=== PATIENT | female | born 1935 | race Caucasian/White ===

== ENCOUNTER 2024-07-17 13:44 | Observation (INO) | payer MEDICARE, SELFPAY ==
[2024-07-17] VITALS (25 sets, daily range): BP systolic 124–153; BP diastolic 73–100; PULSE 73–100; TEMP 35.5–36.7; O2SAT 96–100; BMI 221.3; BMI 22.2
--- NOTE | 2024-07-17 13:58 | ECG_ITS ---
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 Measurements Intervals [place] Rate: 93 P: 17 SC: 170 QRS: 15 QRSD: 82 T: 54 QT: 358 QTc: 409 Interpretive Statements 1100 Sinus rhythm 9110 normal ECG Compared to ECG 01/07/2018 13:21:08 Ventricular premature complex(es) no longer present Possible ischemia no longer present Myocardial infarct finding no longer present Electronically Signed On 07-17-2024 20:33:31 EST by SCOTTY CRUZ M.D.
--- NOTE | 2024-07-17 14:01 | ED_ITS ---
HPI HPI - General Adult General Chief complaint: Recheck/Abnormal Lab/Rx Stated complaint: ABNORMAL LABS Time Seen by Provider: 07/17/24 13:45 Source: patient and family Mode of arrival: walk-in Limitations: no limitations History of Present Illness HPI narrative: Patient is an 89-year-old female who presents to the emergency department at the recommendation of her specialist at the [facility] for an abnormal lab. She sees the [facility] for management of her chronic kidney disease, she states she had outpatient labs that were drawn at the facility and she had a critically high potassium. She was instructed to come to this emergency department for recheck of the potassium. Patient is totally asymptomatic at this time. She has not had any recent illness. Related Data Home Medications ?Medication ?Instructions ?Recorded ?Confirmed No Known Home Medications 07/17/24 07/17/24 Allergies Allergy/AdvReac Type Severity Reaction Status Date / Time No Known Drug Allergies Allergy Verified 07/17/24 13:50 Opioid HPI Opioid Management Most Recent Opioid Data: No Data to Display Review of Systems ROS Constitutional Denies: fever or chills Ears, nose, mouth, and throat Denies: throat pain or nasal congestion Cardiovascular Denies: chest pain Respiratory Denies: shortness of breath Gastrointestinal Denies: nausea or vomiting Integumentary/Breast Denies: rash Neurological Denies: numbness in extremities or weakness in extremities Hematologic/Lymphatic Denies: easy bruising or easy bleeding PFSH PFSH Social History Little interest or pleasure in doing things: not at all Feeling down, depressed, or hopeless: not at all Exam Narrative Exam Narrative: Gen.: Awake, alert, in no distress Head: Normocephalic, atraumatic ENT: Moist mucous membranes Respiratory: No respiratory distress, lungs clear bilaterally Cardio: Regular rate and rhythm Gastrointestinal: Abdomen is soft, nondistended and nontender to palpation Extremities: Moves extremities equally Psych: Normal mood and affect Neuro: No focal neuro deficit Skin: Warm, dry, intact Constitutional Vital Signs, click to edit/add: Last Vital Signs Temp 97.7 F 07/17/24 13:50 Pulse 79 07/17/24 15:20 Resp 18 07/17/24 15:20 BP 124/73 07/17/24 15:11 Pulse Ox 98 07/17/24 15:20 O2 Del Method Room Air 07/17/24 13:50 Course Vital Signs Vital signs: Vital Signs Temperature 97.7 F 07/17/24 13:50 Pulse Rate 100 H 07/17/24 13:50 Respiratory Rate 16 07/17/24 13:50 Blood Pressure 153/98 H 07/17/24 13:50 Pulse Oximetry 98 07/17/24 13:50 Oxygen Delivery Method Room Air 07/17/24 13:50 Temperature 97.7 F 07/17/24 13:50 Pulse Rate 79 07/17/24 15:20 Respiratory Rate 18 07/17/24 15:20 Blood Pressure 124/73 07/17/24 15:11 Pulse Oximetry 98 07/17/24 15:20 Oxygen Delivery Method Room Air 07/17/24 13:50 Medical Decision Making MDM Narrative Medical decision making narrative: EKG is unremarkable, BMP shows potassium 6.1 with creatinine 5.77. Patient's daughter has her old labs from [facility] on electronic medical records on her phone, her typical creatinine over the last few months has been between 4-5 and she typically runs a potassium around 5-5.2. Patient is asymptomatic in the ER, she prefers outpatient management however is agreeable to observation to manage her potassium in the hospital. She was given a small fluid bolus, insulin, dextrose, sodium bicarbonate, calcium gluconate. Discussed with Dr. Aggarwal and the patient is admitted for hyperkalemia in stable condition. I did contact the patient's nephrology office to [facility], Dr. Colbert for kidney medicine. They are aware of the patient. Patient and her daughter at bedside are in agreement, the patient does not have any interest in pursuing dialysis or invasive medical care for her kidney function. They are agreeable to medical management for hyperkalemia, patient is not interested in transfer to a tertiary care facility or pursuing dialysis. SUPERVISED APC VISIT, PHYSICIAN ATTESTATION: Based on the medical record the care appears appropriate. ? Medical Records Medical records reviewed: Yes I reviewed the patient's medical records Lab Data Lab results reviewed: Yes I reviewed the patient's lab results Labs: Lab Results 07/17/24 Range/Units 14:05 Sodium 136 (136-145) mmol/L Potassium 6.1 H* (3.5-5.1) mmol/L Chloride 101 (98-107) mmol/L Carbon Dioxide 24.7 (21.0-32.0) mmol/L Anion Gap 16.4 BUN 53.0 H (7.0-18.0) mg/dL Creatinine 5.77 H* (0.55-1.02) mg/dL Est GFR ( Amer) 8 L (>=60 mL/min/1.73m^2) Est GFR (Non-Af Amer) 7 L (>=60 mL/min/1.73m^2) BUN/Creatinine Ratio 9.2 Glucose 106 (74-106) mg/dL Calcium 9.0 (8.5-10.1) mg/dL ECG Data Attestation: I personally reviewed and interpreted this ECG as follows: (Normal sinus rhythm at a rate of 93, no acute ST elevation or ectopy. EKG reviewed by attending physician) Discharge Plan Discharge Chief Complaint: Recheck/Abnormal Lab/Rx Clinical Impression: Hyperkalemia, Chronic kidney disease Patient Disposition: Admitted as Observation Time of Disposition Decision: 15:57
[2024-07-17 14:25] LABS: Anion Gap 16.4; BUN Creatinine Ratio 9.2; Carbon Dioxide 24.7 mmol/L (21.0-32.0); Chloride 101 mmol/L (98-107); Estimated GFR (African America 8 (>=60 mL/min/1.73m^2); Estimated GFR (Non-African Ame 7 (>=60 mL/min/1.73m^2); Glucose 106 mg/dL (74-106); Sodium 136 mmol/L (136-145)
[2024-07-17 14:26] LABS: Potassium 6.1 mmol/L (3.5-5.1)
[2024-07-17] MEDS: CALCIUM GLUCONATE 1,000 MG/10 ML VIAL 1000 MG IVP (14:50)
[2024-07-17] MEDS: 0.9 % SODIUM CHLORIDE 500 ML IV (14:51)
[2024-07-17] MEDS: SODIUM BICARBONATE 8.4 % 50 MEQ/50 ML SYRINGE IV (14:51)
[2024-07-17] MEDS: DEXTROSE 50 %-WATER 25 GM/50 ML SYRINGE IV (14:51)
[2024-07-17 16:00] LABS: Basophils Percent Auto 0.6 % (0.2-2.0); Eosinophils Absolute Auto 0.1 10^3/uL (0.0-0.7); Hematocrit 37.7 % (36.0-48.0); Hemoglobin 11.6 g/dL (12.0-16.0); Immature Granulocytes Abs Auto 0.02 10^3/uL (0.00-0.03); Immature Granulocytes Pct Auto 0.3 % (0.0-0.5); Lymphocytes Absolute Auto 2.3 10^3/uL (1.2-3.8); Lymphocytes Percent Auto 36.6 % (20.5-60.0); Mean Corpuscular HGB Conc 30.8 g/dL (29.9-35.2); Mean Corpuscular Hemoglobin 32.4 pg (26.7-34.0); Mean Platelet Volume 10.6 fL (9.5-13.5); Monocytes Absolute Auto 0.6 10^3/uL (0.3-0.8); Neutrophils Absolute Auto 3.3 10^3/uL (1.4-6.5); Neutrophils Percent Auto 52.5 % (43.0-75.0); Platelet Count 202 10^3/uL (150-450); Red Blood Count 3.58 10^6/uL (4.20-5.40); Red Cell Distribution Width 13.3 % (11.0-15.0); White Blood Count 6.3 10^3/uL (4.0-11.0)
[2024-07-17 16:10] LABS: Mean Corpuscular Volume 105.3 fL (81.0-99.0)
[2024-07-17] MEDS: INSULIN REGULAR, HUMAN (100 UNIT/ML) 10 ML MDV 10 UNIT IV (16:14)
--- NOTE | 2024-07-17 16:52 | PC.NURSE ---
pt ambulatory to restroom at this time. standby assistance provided by this RN, pt denies needs of assistance. pt denies burning or urinary complaints. 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 pt denies further needs.
--- NOTE | 2024-07-17 17:19 | PC.NURSE ---
pt transported by this RN up to room 214. bedside report given to Selena HALL, all questions answered.
[2024-07-17 18:34] LABS: Magnesium 2.6 mg/dL (1.8-2.4)
--- NOTE | 2024-07-17 19:02 | P.HP_ITS ---
HPI H&P: HPI History of Present Illness Chief complaint: ABNORMAL LABS chronic kidney disease hyperkalemia Narrative: Patient was asked to present to the emergency room with abnormal labs, she is a patient with end-stage renal disease, had elevated potassium, with that she was recommended come to the emergency room, her potassium is over 6 she was given IV treatment in the emergency room and admitted for further monitoring. ' I saw patient up in the medical surgical floor, she was surrounded by an extended family, no complaints she feels fine, no chest pain no shortness of breath no abdominal pain no diarrhea. Opioid HPI Opioid Management Most Recent Pain and Opioid Data: Last Pain Assessment 07/17/24 18:00 Last ORT Total Score 0 07/17/24 17:30 07/17/24 Last ORT Risk Category Low Risk 07/17/24 17:30 07/17/24 Review of Systems ROS Status of ROS 10 or more systems reviewed and unremark able except as noted in history and below PFSH PFSH Medical History (Updated 07/17/24 @ 18:27 by Armida Childress) History of uterine cancer ?Z85.42 - Personal history of malignant neoplasm of other parts of uterus (ICD-10) Skin cancer ?C44.90 - Unspecified malignant neoplasm of skin, unspecified (ICD-10) History of myocardial infarction ?I25.2 - Old myocardial infarction (ICD-10) Surgical History (Updated 07/17/24 @ 18:30 by Armida Childress) History of back surgery ?Z98.890 - Other specified postprocedural states (ICD-10) Hx of heart artery stent ?Z95.5 - Presence of coronary angioplasty implant and graft (ICD-10) History of open heart surgery ?Z98.890 - Other specified postprocedural states (ICD-10) Social History Highest level of school completed/degree received: 7th grade Little interest or pleasure in doing things: not at all Feeling down, depressed, or hopeless: not at all Meds Home Medications and Allergies Home Medications ?Medication ?Instructions ?Recorded ?Confirmed ?Type No Known Home Medications 07/17/24 07/17/24 History Allergies Allergy/AdvReac Type Severity Reaction Status Date / Time No Known Drug Allergies Allergy Verified 07/17/24 13:50 Exam Constitutional Vital Signs, click to edit/add: Last Vital Signs Temp 98.0 F 07/17/24 17:30 Pulse 95 H 07/17/24 17:30 Resp 16 07/17/24 17:30 BP 151/93 H 07/17/24 17:30 Pulse Ox 98 07/17/24 17:30 O2 Del Method Room Air 07/17/24 17:30 Documenting provider has reviewed patient's vital signs: yes Common normals: no apparent distress Respiratory Common normals: normal respiratory effort and no retractions Cardio Common normals: regular rate and regular rhythm GI Common normals: Normal to inspection, nondistended, normoactive bowel sounds present and soft to palpation Results Labs Labs: Short CBC 07/17/24 Range/Units 14:05 WBC 6.3 (4.0-11.0) 10^3/uL Hgb 11.6 L (12.0-16.0) g/dL Hct 37.7 (36.0-48.0) % Plt Count 202 (150-450) 10^3/uL BMP 07/17/24 14:05 Sodium 136 Potassium 6.1 H* Chloride 101 Carbon Dioxide 24.7 BUN 53.0 H Creatinine 5.77 H* Glucose 106 Calcium 9.0 Assessment and Plan Assessment and Plan (1) Chronic kidney disease: (2) Hyperkalemia: Plan Admission findings: Sinus tachycardia, respiratory distress, elevated blood pressure, elevated potassium and mild anemia with elevation of her creatinine and her chronic nature Hyperkalemia secondary to chronic kidney disease stage V-given IV treatments in the ER, will repeat labs later on tonight start patient on low-dose Lokelma 10 mg a day Anemia of chronic kidney disease-monitor daily Mild tachycardia and respiratory distress-no etiology currently, patient feels well. Admission status: Patient admitted to observation due to hyperkalemia from chronic kidney disease stage V, medically necessary treatment likely to only span 1 midnight, maintain observation status
[2024-07-17] MEDS: SODIUM ZIRCONIUM CYCLOSILICATE 10 GM POWD.PACK PO (19:47)
[2024-07-17 20:29] LABS: Anion Gap 15.8; BUN Creatinine Ratio 9.3; Calcium 8.5 mg/dL (8.5-10.1); Carbon Dioxide 26.3 mmol/L (21.0-32.0); Chloride 103 mmol/L (98-107); Estimated GFR (African America 9 (>=60 mL/min/1.73m^2); Estimated GFR (Non-African Ame 7 (>=60 mL/min/1.73m^2); Glucose 171 mg/dL (74-106); Potassium 5.1 mmol/L (3.5-5.1); Sodium 140 mmol/L (136-145)
[2024-07-18] VITALS (7 sets, daily range): BP systolic 113–139; BP diastolic 74–86; PULSE 75–99; TEMP 36.6–36.7; O2SAT 96–97
[2024-07-18 05:54] LABS: Basophils Percent Auto 0.4 % (0.2-2.0); Eosinophils Absolute Auto 0.1 10^3/uL (0.0-0.7); Eosinophils Percent Auto 1.9 % (0.9-7.0); Hematocrit 30.7 % (36.0-48.0); Hemoglobin 9.5 g/dL (12.0-16.0); Immature Granulocytes Abs Auto 0.01 10^3/uL (0.00-0.03); Immature Granulocytes Pct Auto 0.2 % (0.0-0.5); Lymphocytes Absolute Auto 1.5 10^3/uL (1.2-3.8); Lymphocytes Percent Auto 32.6 % (20.5-60.0); Mean Corpuscular HGB Conc 30.9 g/dL (29.9-35.2); Mean Corpuscular Hemoglobin 32.5 pg (26.7-34.0); Mean Corpuscular Volume 105.1 fL (81.0-99.0); Mean Platelet Volume 10.1 fL (9.5-13.5); Monocytes Absolute Auto 0.6 10^3/uL (0.3-0.8); Monocytes Percent Auto 12.5 % (1.7-12.0); Neutrophils Absolute Auto 2.5 10^3/uL (1.4-6.5); Neutrophils Percent Auto 52.4 % (43.0-75.0); Platelet Count 164 10^3/uL (150-450); Red Cell Distribution Width 13.5 % (11.0-15.0); White Blood Count 4.7 10^3/uL (4.0-11.0)
[2024-07-18 06:13] LABS: Alanine Aminotransferase 10 U/L (14-59); Albumin Globulin Ratio 1.2; Alkaline Phosphatase 68 U/L (46-116); Anion Gap 13.4; Aspartate Amino Transferase 9 U/L (15-37); BUN Creatinine Ratio 9.7; Bilirubin Total 0.3 mg/dL (0.2-1.0); Calcium 8.3 mg/dL (8.5-10.1); Carbon Dioxide 26.6 mmol/L (21.0-32.0); Chloride 105 mmol/L (98-107); Estimated GFR (African America 9 (>=60 mL/min/1.73m^2); Estimated GFR (Non-African Ame 8 (>=60 mL/min/1.73m^2); Globulin 2.6 g/dL; Glucose 77 mg/dL (74-106); Magnesium 2.2 mg/dL (1.8-2.4); Phosphorus 5.7 mg/dL (2.6-4.7); Sodium 140 mmol/L (136-145); Total Protein 5.6 g/dL (6.4-8.2)
[2024-07-18 06:15] LABS: Red Blood Count 2.92 10^6/uL (4.20-5.40)
--- NOTE | 2024-07-18 06:52 | P.DS_ITS ---
DS: Providers Provider Date of admission: 07/17/24 17:07 Primary care physician: Dave Cox MD Consults: 07/17/24 Consult to Dietitian Routine Reason for consultation: poor appetite, weight loss 07/17/24 18:19 Consult to Pharmacy Routine Consulting Provider: Reason for consultation: Please [place] me when Med Rec is Updated Has provider been notified: No DS: Diagnosis Discharge Diagnosis (1) Chronic kidney disease: (2) Hyperkalemia: Plan Admission findings: Sinus tachycardia, respiratory distress, elevated blood pressure, elevated potassium and mild anemia with elevation of her creatinine and her chronic nature Hyperkalemia secondary to chronic kidney disease stage V-given IV treatments in the ER, will repeat labs later on tonight start patient on low-dose Lokelma 10 mg a day Anemia of chronic kidney disease-monitor daily Mild tachycardia and respiratory distress-no etiology currently, patient feels well. Admission status: Patient admitted to observation due to hyperkalemia from chronic kidney disease stage V, medically necessary treatment likely to only span 1 midnight, maintain observation status ? DS: Summary Hospital Course Hospital Course: Referred to the emergency room secondary to severe hyperkalemia with a potassium of over 6, she has end-stage renal disease stage V, not a dialysis candidate, she was given medications in ER repeat potassium was down to 5, stayed the same overnight, did start patient on Lokelma, so far tolerated 1 dose of that, at this point she can be discharged to home in improving condition. Medications see list. Follow-up YIN with nephrology and will need outpatient testing to follow-up on potassium as can be arranged by nephrology and or PCP Status at Discharge Overall status at discharge: patient is back to baseline Time Spent with Patient Time attestation: Total time spent providing and/or coordinating discharge services: Exam Constitutional Vital Signs, click to edit/add: Last Vital Signs Temp 98.0 F 07/18/24 00:50 Pulse 76 07/18/24 06:00 Resp 18 07/18/24 00:50 BP 139/86 07/18/24 00:50 Pulse Ox 96 07/18/24 00:50 O2 Del Method Room Air 07/18/24 00:50 Documenting provider has reviewed patient's vital signs: yes Common normals: no apparent distress Respiratory Common normals: normal respiratory effort and no retractions Cardio Common normals: regular rate and regular rhythm GI Common normals: Normal to inspection, nondistended, normoactive bowel sounds present and soft to palpation DS: Data Data Completed and Pending Labs on day of discharge: Labs from last 24 hours 07/18/24 07/17/24 07/17/24 05:08 20:04 14:05 WBC 4.7 6.3 RBC 2.92 L 3.58 L Hgb 9.5 L 11.6 L Hct 30.7 L 37.7 MCV 105.1 H 105.3 H MCH 32.5 32.4 MCHC 30.9 30.8 RDW 13.5 13.3 Plt Count 164 202 MPV 10.1 10.6 Neut % (Auto) 52.4 52.5 Lymph % (Auto) 32.6 36.6 Mccreary % (Auto) 12.5 H 9.0 Eos % (Auto) 1.9 1.0 Baso % (Auto) 0.4 0.6 Neut # (Auto) 2.5 3.3 Lymph # (Auto) 1.5 2.3 Mccreary # (Auto) 0.6 0.6 Eos # (Auto) 0.1 0.1 Baso # (Auto) 0.0 0.0 Abs Immat Gran (auto) 0.01 0.02 Imm/Tot Granulo (auto) 0.2 0.3 Sodium 140 140 136 Potassium 5.0 5.1 6.1 H* Chloride 105 103 101 Carbon Dioxide 26.6 26.3 24.7 Anion Gap 13.4 15.8 16.4 BUN 51.0 H 51.0 H 53.0 H Creatinine 5.25 H* 5.48 H* 5.77 H* Est GFR ( Amer) 9 L 9 L 8 L Est GFR (Non-Af Amer) 8 L 7 L 7 L BUN/Creatinine Ratio 9.7 9.3 9.2 Glucose 77 171 H 106 Calcium 8.3 L 8.5 9.0 Phosphorus 5.7 H Magnesium 2.2 2.6 H Total Bilirubin 0.3 AST 9 L ALT 10 L Alkaline Phosphatase 68 Total Protein 5.6 L Albumin 3.0 L Globulin 2.6 Albumin/Globulin Ratio 1.2 Discharge Plan Discharge Disposition: Home, Self-Care Discharge Medications: New Lokelma 10 gram Powder In Packet 10 g PO QD Qty: 30 11RF Activity: increase activity as tolerated Diet: advance to your usual diet Print Language: British Patient Instructions: Sodium Zirconium Cyclosilicate (By mouth) (Lokelma), Hyperkalemia (DC) Forms: Portal Instructions Follow Up Appointments: Follow up with Nephrology next Sunday as scheduled Follow up with Dr. Cox July 31 at 11:30am Office [place]: [place] [address] Office Discharge Date/Time: 07/18/24 09:50
--- NOTE | 2024-07-18 06:52 | PM.PN ---
Exam Constitutional Vital Signs, click to edit/add: Last Vital Signs Temp 98.0 F 07/18/24 00:50 Pulse 76 07/18/24 06:00 Resp 18 07/18/24 00:50 BP 139/86 07/18/24 00:50 Pulse Ox 96 07/18/24 00:50 O2 Del Method Room Air 07/18/24 00:50 Progress Note: Objective Labs Labs: Short CBC 07/17/24 07/18/24 Range/Units 14:05 05:08 WBC 6.3 4.7 (4.0-11.0) 10^3/uL Hgb 11.6 L 9.5 L (12.0-16.0) g/dL Hct 37.7 30.7 L (36.0-48.0) % Plt Count 202 164 (150-450) 10^3/uL BMP 07/17/24 07/17/24 07/18/24 14:05 20:04 05:08 Sodium 136 140 140 Potassium 6.1 H* 5.1 5.0 Chloride 101 103 105 Carbon Dioxide 24.7 26.3 26.6 BUN 53.0 H 51.0 H 51.0 H Creatinine 5.77 H* 5.48 H* 5.25 H* Glucose 106 171 H 77 Calcium 9.0 8.5 8.3 L Liver Function 07/18/24 Range/Units 05:08 Total Bilirubin 0.3 (0.2-1.0) mg/dL AST 9 L (15-37) U/L ALT 10 L (14-59) U/L Alkaline Phosphatase 68 (46-116) U/L Albumin 3.0 L (3.4-5.0) g/dL Progress Note: A&P Assessment and Plan (1) Chronic kidney disease: (2) Hyperkalemia:
--- NOTE | 2024-07-18 08:42 | CM.NOTE ---
Rounds made with Dr. Aggarwal. Dr. Aggarwal reviews plan of care with Kayla. Plan for discharge today.
[2024-07-18] MEDS: SODIUM ZIRCONIUM CYCLOSILICATE 10 GM POWD.PACK PO (09:24)
--- NOTE | 2024-07-18 09:55 | PC.NURSE ---
dc instructions given to pt and family. all verbalize understanding. pt dressed, taken to exit with belongings. discharged to private vehicle.
--- NOTE | 2024-07-18 10:01 | SWNOTE1 ---
SW met with pt to discuss dc needs. Pt's 2 daughters and grand-daughter in room as well. Pt was dressed and ready to go and thought SW was nurse bringing in dc paperwork. Pt lives at home alone and is independent. Pt has 8 children who can helps her as needed. No anticipated discharge needs at this time. SW to follow as needed.
--- NOTE | 2024-07-18 10:03 | SWNOTE1 ---
Medicare Outpatient Observation Notice reviewed and discussed with patient. Pt. verbalized understanding and signed the form. Original given to patient and copy placed in patient?s chart.
--- NOTE | 2024-07-21 15:15 | CM.DCFOLLOWU ---
1st attempt 07/21/24, straight to voicemail
== END 2024-07-18 09:50 | disposition home or self-care (01) ==
LOC: ER 15:57 → MS 17:17
PROVIDERS: Physician Assistant; Admitting Provider Family Medicine; Emergency Provider Emergency Medicine; PCP Family Medicine; Visit Provider Family Medicine
DX: E87.5 Hyperkalemia (principal); R00.0 Tachycardia, unspecified; R06.03 Acute respiratory distress; N18.5 Chronic kidney disease, stage 5; D63.1 Anemia in chronic kidney disease; I12.9 Hypertensive chronic kidney disease with stage 1 through stage 4 chronic kidney disease, or unspecified chronic kidney disease
CPT/HCPCS: 36415; 80048; 80053; 83735; 84100; 85025; 93005; 94761; 96374; 96375; 99285; G0378; J0612; J1817

== ENCOUNTER 2024-09-08 17:19 | Emergency (ER) | payer MEDICARE, SELFPAY ==
[2024-09-08 17:25] VITALS: BP 135/83; PULSE 106; TEMP 36.4; O2SAT 97; BMI 25.0
--- NOTE | 2024-09-08 17:47 | ED.GENADUL1 ---
HPI HPI - General Adult General Chief complaint: Fall Stated complaint: FALL Time Seen by Provider: 09/08/24 17:44 Source: patient Mode of arrival: ambulance History of Present Illness HPI narrative: The patient is a hospice care patient with a renal failure stage V, brought to us by the ambulance for concern that her caregiver which is her daughter saw her lowering herself down to the floor after which she noticed some right hip pain, the patient is bedridden and she does not get out of the bed the patient is laying in the bed with no distress According to the daughter she had some decrease in her p.o. intake over the last few days and she is not in any distress or nausea or vomiting or any difficulty breathing, the only noted the pain when they are moving the patient in the bed to change her depends and she does already have a history of Dilaudid prescribed to her but they are not giving her that Related Data Previous Rx's ?Medication ?Instructions ?Recorded sodium zirconium cyclosilicate 10 10 g PO QD #30 ea 07/18/24 gram oral powder packet (Lokelma) Allergies Allergy/AdvReac Type Severity Reaction Status Date / Time No Known Drug Allergies Allergy Verified 09/08/24 17:25 Opioid HPI Opioid Management Most Recent Opioid Data: Last Pain Scale 9 09/08/24, 18:09 Last ORT Total Score 0 07/17/24, 17:30 Last ORT Risk Category Low Risk 07/17/24, 17:30 Review of Systems ROS Status of ROS 10 or more systems reviewed and unremarkable except as noted in history and below PFSH PFSH Medical History (Updated 09/08/24 @ 18:01 by Meenakshi Almeida MD) Chronic kidney disease ?N18.9 - Chronic kidney disease, unspecified (ICD-10) Hyperkalemia ?E87.5 - Hyperkalemia (ICD-10) History of uterine cancer ?Z85.42 - Personal history of malignant neoplasm of other parts of uterus (ICD-10) Skin cancer ?C44.90 - Unspecified malignant neoplasm of skin, unspecified (ICD-10) History of myocardial infarction ?I25.2 - Old myocardial infarction (ICD-10) Surgical History (Updated 07/17/24 @ 18:30 by Armida Childress) History of back surgery ?Z98.890 - Other specified postprocedural states (ICD-10) Hx of heart artery stent ?Z95.5 - Presence of coronary angioplasty implant and graft (ICD-10) History of open heart surgery ?Z98.890 - Other specified postprocedural states (ICD-10) Social History Highest level of school completed/degree received: 7th grade Little interest or pleasure in doing things: not at all Feeling down, depressed, or hopeless: not at all Exam Narrative Exam Narrative: Nurses notes and vital signs reviewed and patient is not hypoxic. General: Well-appearing and in no apparent distress. Skin: Warm, dry, no pallor noted. No rash. Head: Normocephalic, atraumatic. Neck: Supple, non-tender. Eye: Pupils are equal, round and EOMI. No scleral icterus. Ears, Nose, Mouth, and Throat: TM are clear, no nasal mucosal hypertrophy. Oral mucosa is moist, no posterior oropharynx erythema, uvula is mid-line Cardiovascular: Regular Rate and Rhythm without murmur, gallop or rub. Respiratory: No accessory muscle use or respiratory distress. Lungs are clear to auscultation, no wheezing, rales or rhonchi Chest Wall: no tenderness Back: No midline thoracic or lumbar vertebral tenderness. No CVA tenderness Musculoskeletal: Tenderness with the right hip movement with no obvious deformity GI: Abdomen is soft, non-distended. Normal bowel sounds. No masses appreciated. No tenderness to palpation. No rebound, guarding, or rigidity noted. Neurological: Alert No cranial nerve dysfunction observed. . Moves all extremities. Sensation intact. Constitutional Vital Signs, click to edit/add: Last Vital Signs Temp 97.5 F L 09/08/24 17:25 Pulse 106 H 09/08/24 17:25 Resp 18 09/08/24 17:25 BP 136/86 09/08/24 20:12 Pulse Ox 97 09/08/24 17:25 O2 Del Method Room Air 09/08/24 17:25 Course Vital Signs Vital signs: Vital Signs Temperature 97.5 F L 09/08/24 17:25 Pulse Rate 106 H 09/08/24 17:25 Respiratory Rate 18 09/08/24 17:25 Blood Pressure 135/83 09/08/24 17:25 Pulse Oximetry 97 09/08/24 17:25 Oxygen Delivery Method Room Air 09/08/24 17:25 Temperature 97.5 F L 09/08/24 17:25 Pulse Rate 106 H 09/08/24 17:25 Respiratory Rate 18 09/08/24 17:25 Blood Pressure 136/86 09/08/24 20:12 Pulse Oximetry 97 09/08/24 17:25 Oxygen Delivery Method Room Air 09/08/24 17:25 Medical Decision Making MDM Narrative Medical decision making narrative: I did explain to the patient family at the bedside that since the patient is hospice care and she is not in any distress, I did explain to them that I can do the x-ray further manage but I did also explain that the patient will be in pain when turning her to get the x-ray And with the fact that she is hospice care and renal failure even if there is any fracture that plan will be bedrest for care and control of the pain Patient ready have Dilaudid at home but she is not taking it except 1 time since she was prescribed, I did explain to the family at the bedside that they have to give her the medication every time they are planning to turn her in the bed The family at the bedside understand the plan and agreeable of it. They do not want her to have an x-ray if that can cause her pain and the patient is laying in the bed with no distress which is the goal of her hospice care I also explained to them that they need to reach out to the nurse practitioner prescribed him hospice medication in case the pain medication is not enough Patient was prescribed 1 dose of morphine before getting discharged Discharge Plan Discharge Chief Complaint: Fall Clinical Impression: Hip pain Patient Disposition: Home, Self-Care Time of Disposition Decision: 18:01 Condition: Good Prescriptions / Home Meds: No Action Lokelma 10 gram Powder In Packet 10 g PO QD Qty: 30 11RF Print Language: Ukrainian Instructions: Hip Pain (ED) Referrals: Physician,Non-Staff, MD [Primary Care Provider] - 1 week Discharge Date/Time: 09/08/24 20:22
--- NOTE | 2024-09-08 18:00 | PC.NURSE ---
Pt presents to ER via EMS for leg pain Pt is a DNR CC on Hospice due to stage 5 kidney failure without dialysis Pt has 3 children who show to ER at bedside Pt is new to hospice at home, just admitted Sunday Per family pt has been experiencing falls from bed and has since began to yell out when her leg is moved during diaper and bed changes Per family the Hospice aid was at the house and recommended bringing her in to be evaluated On arrival Dr. Almeida and this nurse spend extensive time with the family explaining the pros and cons of ER treatment and the need for higher pain control via hospice After long conversation the family agrees they do not want to xray patient or push and further treatment, rather treat her pain and be transferred back home
[2024-09-08] MEDS: MORPHINE SULFATE 20 MG/ML ORAL CONCENTRATE BOTTLE 5 MG PO (19:31)
[2024-09-08 20:12] VITALS: BP 136/86
== END 2024-09-08 20:22 | disposition home or self-care (01) ==
PROVIDERS: Emergency Provider Emergency Medicine; PCP Internal Medicine
DX: M25.551 Pain in right hip (principal); Z74.01 Bed confinement status; N18.5 Chronic kidney disease, stage 5; Z95.5 Presence of coronary angioplasty implant and graft
CPT/HCPCS: 99283